=== PATIENT | female | born 1945 | race Two or more races ===

== ENCOUNTER 2024-08-12 05:50 | Day surgery (SDC) | payer OTHER ==
[2024-08-12] MEDS ORDERED: GLUCAGON 1 MG VIAL IV STA (09:22)
[2024-08-12] MEDS ORDERED: ONDANSETRON HCL 2 MG/ML VIAL IV ONE (09:30)
[2024-08-12] MEDS ORDERED: DIPHENHYDRAMINE HCL 50 MG/ML VIAL 1ML IV ONE ×2 (09:30)
[2024-08-12] MEDS ORDERED: fentaNYL CITRATE 50 MCG/ML AMPUL IV PUSH ONE (09:30)
[2024-08-12] MEDS ORDERED: ENALAPRILAT DIHYDRATE 1.25 MG/ML VIAL IV ONE (10:30)
== END 2024-08-12 11:15 | disposition home or self-care (01) ==
LOC: AMB-ENDOS 05:50
PROVIDERS: ATTEND Colon & Rectal Surgery
DX: D12.3 Benign neoplasm of transverse colon (principal); D12.4 Benign neoplasm of descending colon; K63.5 Polyp of colon; K57.30 Diverticulosis of large intestine without perforation or abscess without bleeding

== ENCOUNTER 2024-10-23 08:00 | Outpatient (CLI) | payer OTHER ==
[2024-10-05 12:46] VITALS: BP 189/75
[2024-10-05 14:57] LABS: RH POSITIVE
[~2024-10-23] VITALS: Ht 165.1 cm; Wt 63.5 kg
[~2024-10-23 08:00] MED LIST: BRILINTA90 MG PO; CILOSTAZOL100 MG PO; COZAAR100 MG PO; LIPITOR40 M1 PO; LOPRESSOR25 MG; METFORMIN HCL500 M3; NITROGLYCERIN0.4 MG SL; NITROGLYCERIN1 EAC2 TD; NORVASC10 MG PO; PANTOPRAZOLE SO40 MG PO; TRADJENTA5 MG PO; VITAMIN D
[2024-10-23] MEDS ORDERED: COZAAR25 MG PO (14:03)
[2024-10-23 14:05] VITALS: BP 170/72
== END 2024-10-23 08:01 | disposition home or self-care (01) ==
LOC: EKG 08:00 → EDSTATUS 11-02 11:00 → SURG 11-02 11:00
PROVIDERS: ATTEND Colon & Rectal Surgery
DX: K63.5 Polyp of colon (principal); R59.0 Localized enlarged lymph nodes

== ENCOUNTER 2025-01-05 11:13 | Inpatient (IN) | payer OTHER ==
[~2025-01-05] VITALS: Ht 165.1 cm; Wt 62.1 kg
[~2025-01-05 11:13] MED LIST changes: +COZAAR25 MG PO
[2025-01-05 12:19] VITALS: BP 154/68
[2025-01-08] MEDS ORDERED: CEFTRIAXONE SODIUM 2,000 MG VIAL ONE (08:34)
[2025-01-08] MEDS ORDERED: METRONIDAZOLE/SODIUM CHLORIDE 500 MG/100 ML PIGGYBACK IV ONE ×2 (08:34→14:30)
[2025-01-08] MEDS ORDERED: BUPIVACAINE HCL/MPF 0.5% 30ML VIAL ONE (12:50)
[2025-01-08] MEDS ORDERED: CEFTRIAXONE SODIUM 2,000 MG VIAL IV ONE (14:30)
[2025-01-08] MEDS ORDERED: BUPIVACAINE HCL 30 ML VIAL IJ ONE (14:30)
[2025-01-08] MEDS ORDERED: VITAMIN D21250 MCG (16:23)
[2025-01-08] MEDS ORDERED: FLONASE16 GM (16:23)
[2025-01-08] MEDS ORDERED: ONDANSETRON HCL 2 MG/ML VIAL IV PRN (16:30)
[2025-01-08] MEDS ORDERED: RINGERS SOLUTION,LACTATED 1,000 ML IV SCH (16:30)
[2025-01-08] MEDS ORDERED: MORPHINE SULFATE 4 MG/ML CARTRIDGE IV PRN (16:30)
[2025-01-08] MEDS ORDERED: DEXTROSE 50 % IN WATER 0.5 G/ML VIAL IV PRN (16:30)
[2025-01-08] MEDS ORDERED: MORPHINE SULFATE 2 MG/ML CARTRIDGE IV PRN (16:38)
[2025-01-08] MEDS ORDERED: NITROGLYCERIN 0.4 MG TAB.SUBL SL PRN (16:45)
[2025-01-08] MEDS ORDERED: OxyCODONE HCL 5 MG TABLET (ROXICODONE) PO PRN (16:45)
[2025-01-08] MEDS ORDERED: POLYETHYLENE GLYCOL 3350 17 GM BLIST.PACK PO SCH (17:00)
[2025-01-08] MEDS ORDERED: SIMETHICONE 125 MG CAPSULE PO SCH (17:00)
[2025-01-08] MEDS ORDERED: ACETAMINOPHEN 500 MG GEL..CAP PO SCH (18:00)
[2025-01-08] MEDS ORDERED: ONDANSETRON HCL 2 MG/ML VIAL IV ONE (18:20)
[2025-01-08] MEDS ORDERED: MORPHINE SULFATE 4 MG/ML VIAL IV ONE (18:20)
[2025-01-08] MEDS ORDERED: FAMOTIDINE/PF 20 MG/2 ML VIAL IV SCH (21:00)
[2025-01-08 21:54] LABS: BASO % 0.3 % (0.1-1.2); HEMATOCRIT 32.2 % (34.1-44.9); HEMOGLOBIN 11.7 g/dL (11.2-15.7); LYMPH % 3.5 % (19.3-53.1); MEAN CORPUSCULAR HEMOGLOBIN 31.5 pg (25.6-32.2); MONO # 0.54 (0.24-0.82); MONO % 4.7 % (4.7-12.5); NEUT # 10.42 (1.56-6.13); NEUT % 91.2 % (34.0-71.1); PLATELET COUNT 173 K/uL (163-369); RED BLOOD COUNT 3.72 M/uL (3.93-5.22); RED CELL DISTRIBUTION WIDTH 12.4 % (11.6-14.4)
[2025-01-08] MEDS ORDERED: FAMOTIDINE/PF 20 MG/2 ML VIAL ONE (22:08)
[2025-01-08 22:10] LABS: ALBUMIN 3.6 gm/dL (3.4-5.0); CALCIUM 8.9 mg/dL (8.5-10.1); CREATININE SERUM 0.93 mg/dL (0.55-1.02); GFR 58.31; PHOSPHOROUS 3.4 mg/dL (2.5-4.9); POTASSIUM 3.48 mEq/L (3.5-5.1)
[2025-01-08 22:32] LABS: MAGNESIUM 1.2 mg/dL (1.8-2.4)
[2025-01-08 23:06] VITALS: BP 170/67; O2SAT 100
[2025-01-09 01:21] VITALS: BP 148/76; O2SAT 97
[2025-01-09] MEDS ORDERED: METOPROLOL TARTRATE 50 MG TABLET PO SCH (09:00)
[2025-01-09] MEDS ORDERED: LACTOBACILLUS ACIDOPHILUS 1 CAP CAP PO SCH (09:00)
[2025-01-09] MEDS ORDERED: LOSARTAN POTASSIUM 100 MG TABLET PO SCH (09:00)
[2025-01-09] MEDS ORDERED: CILOSTAZOL 100 MG TABLET PO SCH (09:00)
[2025-01-09] MEDS ORDERED: AMLODIPINE BESYLATE 10 MG TABLET PO SCH (09:00)
[2025-01-09] MEDS ORDERED: MAGNESIUM CHLORIDE 70 MG TABLET.DR PO SCH (09:00)
[2025-01-09] MEDS ORDERED: NITROGLYCERIN 0.4 MG/HR PATCH.TD24 TD SCH (09:00)
[2025-01-09] MEDS ORDERED: ATORVASTATIN CALCIUM 40 MG TABLET PO SCH (09:00)
[2025-01-09 09:13] VITALS: BP 157/66; O2SAT 96
[2025-01-09 09:27] LABS: ALBUMIN 3.3 gm/dL (3.4-5.0); CALCIUM 8.5 mg/dL (8.5-10.1); CREATININE SERUM 0.93 mg/dL (0.55-1.02); GFR 58.31; PHOSPHOROUS 3.5 mg/dL (2.5-4.9); POTASSIUM 3.77 mEq/L (3.5-5.1)
[2025-01-09 09:29] LABS: BASO % 0.1 % (0.1-1.2); HEMATOCRIT 32.4 % (34.1-44.9); HEMOGLOBIN 11.6 g/dL (11.2-15.7); LYMPH # 0.38 (1.18-3.74); LYMPH % 3.2 % (19.3-53.1); MEAN CORPUSCULAR HEMOGLOBIN 31.2 pg (25.6-32.2); MONO % 5.1 % (4.7-12.5); NEUT # 10.82 (1.56-6.13); NEUT % 91.2 % (34.0-71.1); PLATELET COUNT 164 K/uL (163-369); RED BLOOD COUNT 3.72 M/uL (3.93-5.22); RED CELL DISTRIBUTION WIDTH 12.6 % (11.6-14.4)
[2025-01-09 09:51] LABS: MAGNESIUM 1.2 mg/dL (1.8-2.4)
[2025-01-09] MEDS ORDERED: MAGNESIUM SULFATE IN WATER 2 GM/50 ML PIGGYBAG IV NR (11:30)
[2025-01-09 16:00] VITALS: BP 128/68; O2SAT 95
[2025-01-09] MEDS ORDERED: ENOXAPARIN SODIUM 40 MG/0.4 ML SYRINGE SUBCUTANEO SCH (17:00)
[2025-01-09] MEDS ORDERED: NAPH,MB-DB/K PH,MBDB 1 PKT PACKET PO SCH (17:10)
[2025-01-09] MEDS ORDERED: MAGNESIUM SULFATE 50% 1,000 MG/2 ML VIAL IV ONE (17:15)
[2025-01-09] MEDS ORDERED: MORPHINE SULFATE 4 MG/ML VIAL IV STA (17:27)
[2025-01-09] MEDS ORDERED: MAGNESIUM SULFATE IN WATER 2 GM/50 ML PIGGYBAG IV ONE (21:18)
[2025-01-10 00:39] VITALS: BP 123/69; O2SAT 98
[2025-01-10 07:41] LABS: BASO % 0.4 % (0.1-1.2); EOS # 0.12 (0.04-0.54); EOS % 1.3 % (0.7-7.0); HEMOGLOBIN 10.1 g/dL (11.2-15.7); LYMPH # 1.01 (1.18-3.74); LYMPH % 11.2 % (19.3-53.1); MEAN CORPUSCULAR HEMOGLOBIN 31.4 pg (25.6-32.2); MONO # 0.53 (0.24-0.82); MONO % 5.9 % (4.7-12.5); NEUT # 7.26 (1.56-6.13); NEUT % 80.6 % (34.0-71.1); PLATELET COUNT 137 K/uL (163-369); RED BLOOD COUNT 3.22 M/uL (3.93-5.22); RED CELL DISTRIBUTION WIDTH 12.5 % (11.6-14.4)
[2025-01-10 08:25] LABS: ALBUMIN 2.9 gm/dL (3.4-5.0); CALCIUM 8.1 mg/dL (8.5-10.1); CREATININE SERUM 0.99 mg/dL (0.55-1.02); GFR 54.25; MAGNESIUM 2.3 mg/dL (1.8-2.4); POTASSIUM 3.08 mEq/L (3.5-5.1)
[2025-01-10 08:56] LABS: PHOSPHOROUS 1.9 mg/dL (2.5-4.9)
[2025-01-10] MEDS ORDERED: NAPH,MB-DB/K PH,MBDB 1 PKT PACKET PO STA (08:56)
[2025-01-10] MEDS ORDERED: POTASSIUM PHOS,M-BASIC-D-BASIC 15 MM in 0.9 % SODIUM CHLORIDE 250 ML IV NR (09:00)
[2025-01-10] MEDS ORDERED: FAMOtidine 20 MG TABLET PO SCH (09:00)
[2025-01-10] MEDS ORDERED: IRON FUM,PS/FOLIC ACID/VITC/B3 1 CAP CAPSULE PO SCH (09:00)
[2025-01-10] MEDS ORDERED: NAPH,MB-DB/K PH,MBDB 1 PKT PACKET PO SCH (09:00)
[2025-01-10] MEDS ORDERED: PYRIDOXINE HCL 100 MG TABLET PO SCH (09:09)
[2025-01-10] MEDS ORDERED: Cyanocobalamin/Mecobalamin 1 TAB.SL SL SCH (09:09)
[2025-01-10] MEDS ORDERED: MORPHINE SULFATE 4 MG/ML CARTRIDGE IV STA (09:19)
[2025-01-10 09:26] VITALS: BP 154/88; O2SAT 95
[2025-01-10 16:00] VITALS: BP 149/67; O2SAT 94
[2025-01-10] MEDS ORDERED: MORPHINE SULFATE 4 MG/ML CARTRIDGE IV SCH (21:00)
[2025-01-11 00:43] VITALS: BP 137/65; O2SAT 98
[2025-01-11 08:21] VITALS: BP 157/70; O2SAT 96
[2025-01-11 11:15] LABS: BASO % 0.3 % (0.1-1.2); EOS % 3.3 % (0.7-7.0); HEMATOCRIT 29.5 % (34.1-44.9); HEMOGLOBIN 10.3 g/dL (11.2-15.7); LYMPH # 0.68 (1.18-3.74); LYMPH % 11.1 % (19.3-53.1); MEAN CORPUSCULAR HEMOGLOBIN 30.7 pg (25.6-32.2); MONO # 0.37 (0.24-0.82); NEUT # 4.84 (1.56-6.13); NEUT % 78.8 % (34.0-71.1); PLATELET COUNT 147 K/uL (163-369); RED BLOOD COUNT 3.35 M/uL (3.93-5.22); RED CELL DISTRIBUTION WIDTH 12.8 % (11.6-14.4)
[2025-01-11 11:45] LABS: CALCIUM 8.5 mg/dL (8.5-10.1); CREATININE SERUM 0.76 mg/dL (0.55-1.02); GFR 73.6; MAGNESIUM 1.7 mg/dL (1.8-2.4); PHOSPHOROUS 2.4 mg/dL (2.5-4.9); POTASSIUM 3.45 mEq/L (3.5-5.1)
[2025-01-11] MEDS ORDERED: MAGNESIUM SULFATE IN WATER 4GM/50ML PIGGYBAG IV NR (14:45)
[2025-01-11] MEDS ORDERED: MAGNESIUM SULFATE IN WATER 4 GM/100 ML PIGGYBACK IV NR (14:45)
[2025-01-11] MEDS ORDERED: POTASSIUM CHLORIDE IN WATER 100 ML IV NR (14:45)
[2025-01-11 15:48] VITALS: BP 143/58; O2SAT 95
== END 2025-01-11 17:53 | disposition home or self-care (01) | DRG 331 ==
LOC: SURH 01-08 06:00 → O/R 01-08 06:00 → SURH 01-08 11:00
PROVIDERS: ADMIT Colon & Rectal Surgery; ATTEND Colon & Rectal Surgery
PROC: 07BB4ZZ Excision of Mesenteric Lymphatic, Percutaneous Endoscopic Approach (ICD-10-PCS; 2025-01-08)
PROC: 0DTG4ZZ Resection of Left Large Intestine, Percutaneous Endoscopic Approach (ICD-10-PCS; principal; 2025-01-08 11:00)
DX: K63.5 Polyp of colon (principal); R59.0 Localized enlarged lymph nodes